=== PATIENT | female | born 1985 | race Caucasian/White ===

== ENCOUNTER 2018-07-08 09:20 | Emergency (ER) | payer SELFPAY ==
--- NOTE | 2018-07-08 10:35 | RAD REPORT ---
EXAM DESCRIPTION: RAD - Chest Pa And Lat (2 Views) - 07/08/2018 10:27 am CLINICAL HISTORY: Congestion;Cough;Chest pain Chest pain. COMPARISON: CHEST SINGLE VIEW dated 10/13/2014 FINDINGS: Mild reticular opacities are present in both lung bases likely representing mild developin g pneumonia. The heart is normal in size. No displaced fractures.
--- NOTE | 2018-07-08 10:42 | ER ---
Nurse's Notes [facility] Name: Christopher Osuna Age: 32 yrs Sex: Female : 1985 Arrival Date: 07/08/2018 Time: 09:24 Bed 5 Private MD: Unknown, Unknown Diagnosis: Bronchitis, not specified as acute or chronic;Other chest pain;Chest pain on breathing;Tobacco abuse counseling;Tobacco use;Pneumonia due to other specified bacteria Presentation: 07/08 09:36 Presenting complaint: Patient states: non productive cough, subjective fever, chest iw tightness X 3 days, also feels dizzy when she stands. Transition of care: patient was not received from another setting of care. Onset of symptoms was July 05, 2018. Risk Assessment: Do you want to hurt yourself or someone else? Patient reports no desire to harm self or others. Initial Sepsis Screen: Does the patient meet any 2 criteria? No. Patient's initial sepsis screen is negative. Does the patient have a suspected source of infection? No. Patient's initial sepsis screen is negative. Care prior to arrival: None. 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 - Social history:: Smoking status: Patient uses tobacco products, smokes one-half pack cigarettes per day. - Ebola Screening: : Patient negative for fever greater than or equal to 101.5 degrees Fahrenheit, and additional compatible Ebola Virus Disease symptoms Patient denies exposure to infectious person Patient denies travel to an Ebola-affected area in the 21 days before illness onset No symptoms or risks identified at this time. - Family history:: not pertinent. Screenin:00 Abuse screen: Denies threats or abuse. Denies injuries from another. Nutritional iw screening: No deficits noted. Tuberculosis screening: No symptoms or risk factors identified. Fall Risk None identified. Assessment: 09:56 General: Appears in no apparent distress. Behavior is calm, cooperative. Pain: iw Complains of pain in chest Pain radiates to back Pain began 2-3 days ago. Neuro: Level of Consciousness is awake, alert, obeys commands, Moves all extremities. Full function. Cardiovascular: Patient's skin is warm and dry. Respiratory: Respiratory effort is even, unlabored, Respiratory pattern is regular. Vital Signs: 09:39 BP 131 / 78; Pulse 85; Resp 16; Temp 98.3; Pulse Ox 98% on R/A; Weight 117.93 kg; iw Height 5 ft. 6 in. (167.64 cm); Pain 8/10; 09:39 Body Mass Index 41.96 (117.93 kg, 167.64 cm) iw ED Course: 09:24 Patient arrived in ED. ag5 09:26 Unknown, Unknown is Private Physician. ag5 09:34 Chele Bryant MD is Attending Physician. maria luisa 09:35 Lluvia Sandoval, MARIAM is Primary Nurse. iw 09:37 Triage completed. iw 10:09 EKG done, by equipment engineering technician. reviewed by Chele Bryant MD. at1 10:10 Patient has correct armband on for positive identification. Pulse ox on. iw 10:18 Patient moved to radiology via wheelchair. sw 10:23 X-ray completed. Patient tolerated procedure well. sw 10:24 Chest Pa And Lat (2 Views) XRAY In Process Unspecified. EDMS 10:32 Patient moved back from radiology. sw 10:43 Nish Huertas MD is Referral Physician. maria luisa 11:17 No provider procedures requiring assistance completed. Patient did not have IV access iw during this emergency room visit. Patient maintains SpO2 saturation greater than 95% on room air. 11:17 Arm band placed on. iw Administered Medications: 11:17 Drug: Zithromax 1 grams Route: PO; iw 11:20 Follow up: Response: No adverse reaction iw 11:18 Drug: Rocephin (cefTRIAXone) 1 grams Route: IM; Site: right ventrogluteal; iw 11:20 Follow up: Response: No adverse reaction iw Outcome: 10:41 Discharge ordered by . maria luisa 11:18 Discharged to home ambulatory. iw 11:18 Condition: good 11:18 Discharge instructions given to patient, family, Instructed on discharge instructions, follow up and referral plans. medication usage, Demonstrated understanding of instructions, follow-up care, medications, Prescriptions given X 2. 11:19 Patient left the ED. iw Signatures: Dispatcher [employer] Chele Fritz MD MD cha Williams, Irene, RN RN iw Cori Dacosta, metal fence erector EKG Tat1 Giovanna Hernandez RN RN Tiffany Manrique Ajare ag5 Corrections: (The following items were deleted from the chart) 10:09 10:08 General: Appears ph ph
--- NOTE | 2018-07-08 10:42 | EDPHYS ---
Physician Documentation [facility] Name: Christopher Osuna Age: 32 yrs Sex: Female : 1985 Arrival Date: 07/08/2018 Time: 09:24 Bed 5 Private MD: Unknown, Unknown ED Physician Chele Bryant HPI: 07/08 09:41 This 32 yrs old Female presents to ER via Ambulatory with complaints of Chest maria luisa Tightness, Dizziness. 09:41 The patient or guardian reports chest pain that is located primarily in the anterior maria luisa chest wall. The pain does not radiate. Associated signs and symptoms: Pertinent positives: cough. The chest pain is described as aching. Modifying factors: The symptoms are alleviated by remaining still, rest, the symptoms are aggravated by breathing, movement, palpation of area, twisting torso. Severity of pain: At its worst the pain was mild in the emergency department the pain is unchanged. The patient has not experienced similar symptoms in the past. 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 - Social history:: Smoking status: Patient uses tobacco products, smokes one-half pack cigarettes per day. - Ebola Screening: : Patient negative for fever greater than or equal to 101.5 degrees Fahrenheit, and additional compatible Ebola Virus Disease symptoms Patient denies exposure to infectious person Patient denies travel to an Ebola-affected area in the 21 days before illness onset No symptoms or risks identified at this time. - Family history:: not pertinent. ROS: 09:41 Constitutional: Negative for fever, chills, and weight loss, Eyes: Negative for injury, maria luisa pain, redness, and discharge, ENT: Negative for injury, pain, and discharge, Neck: Negative for injury, pain, and swelling, Cardiovascular: Negative for chest pain, palpitations, and edema, Abdomen/GI: Negative for abdominal pain, nausea, vomiting, diarrhea, and constipation, Back: Negative for injury and pain, : Negative for injury, bleeding, discharge, and swelling, MS/Extremity: Negative for injury and deformity, Skin: Negative for injury, rash, and discoloration, Neuro: Negative for headache, weakness, numbness, tingling, and seizure, Psych: Negative for depression, anxiety, suicide ideation, homicidal ideation, and hallucinations, Allergy/Immunology: Negative for hives, rash, and allergies, Endocrine: Negative for neck swelling, polydipsia, polyuria, polyphagia, and marked weight changes, Hematologic/Lymphatic: Negative for swollen nodes, abnormal bleeding, and unusual bruising. 09:41 Respiratory: Positive for cough, with no reported sputum. 09:46 MS/extremity: Negative for acute changes, no trauma, no stasis, no hcs, no hx dvt, pe. maria luisa Exam: 09:41 Constitutional: This is a well developed, well nourished patient who is awake, alert, maria luisa and in no acute distress. Head/Face: Normocephalic, atraumatic. Eyes: Pupils equal round and reactive to light, extra-ocular motions intact. Lids and lashes normal. Conjunctiva and sclera are non-icteric and not injected. Cornea within normal limits. Periorbital areas with no swelling, redness, or edema. ENT: Nares patent. No nasal discharge, no septal abnormalities noted. Tympanic membranes are normal and external auditory canals are clear. Oropharynx with no redness, swelling, or masses, exudates, or evidence of obstruction, uvula midline. Mucous membranes moist. Neck: Trachea midline, no thyromegaly or masses palpated, and no cervical lymphadenopathy. Supple, full range of motion without nuchal rigidity, or vertebral point tenderness. No Meningismus. Cardiovascular: Regular rate and rhythm with a normal S1 and S2. No gallops, murmurs, or rubs. Normal PMI, no JVD. No pulse deficits. Respiratory: Lungs have equal breath sounds bilaterally, clear to auscultation and percussion. No rales, rhonchi or wheezes noted. No increased work of breathing, no retractions or nasal flaring. Abdomen/GI: Soft, non-tender, with normal bowel sounds. No distension or tympany. No guarding or rebound. No evidence of tenderness throughout. Back: No spinal tenderness. No costovertebral tenderness. Full range of motion. Skin: Warm, dry with normal turgor. Normal color with no rashes, no lesions, and no evidence of cellulitis. MS/ Extremity: Pulses equal, no cyanosis. Neurovascular intact. Full, normal range of motion. Neuro: Awake and alert, GCS 15, oriented to person, place, time, and situation. Cranial nerves II-XII grossly intact. Motor strength 5/5 in all extremities. Sensory grossly intact. Cerebellar exam normal. Normal gait. Psych: Awake, alert, with orientation to person, place and time. Behavior, mood, and affect are within normal limits. 09:41 Chest/axilla: Inspection: normal, Palpation: tenderness, Axilla: are normal, no acute changes, Lymph nodes: lymphadenopathy is not appreciated. 09:43 Musculoskeletal/extremity: Extremities: all appear grossly normal, with no appreciated maria luisa pain with palpation, DVT Exam: No signs of deep vein thrombosis. no pain, no swelling, no tenderness, negative Homans' sign noted on exam, no appreciated bluish discoloration, no erythema, no increased warmth. Vital Signs: 09:39 BP 131 / 78; Pulse 85; Resp 16; Temp 98.3; Pulse Ox 98% on R/A; Weight 117.93 kg; iw Height 5 ft. 6 in. (167.64 cm); Pain 8/10; 09:39 Body Mass Index 41.96 (117.93 kg, 167.64 cm) iw MDM: 09:34 Patient medically screened. [facility] 09:43 Data reviewed: vital signs, nurses notes, EKG, radiologic studies, plain films. [facility] 07/08 09:41 Order name: Chest Pa And Lat (2 Views) XRAY [facility] 07/08 09:41 Order name: EKG; Complete Time: 09:41 [facility] 07/08 09:41 Order name: EKG - Nurse/Tech; Complete Time: 11:18 [facility] Administered Medications: 11:17 Drug: Zithromax 1 grams Route: PO; iw 11:20 Follow up: Response: No adverse reaction iw 11:18 Drug: Rocephin (cefTRIAXone) 1 grams Route: IM; Site: right ventrogluteal; iw 11:20 Follow up: Response: No adverse reaction iw Disposition: 07/08/18 10:41 Discharged to Home. Impression: Bronchitis, not specified as acute or chronic, Other chest pain, Chest pain on breathing, Tobacco abuse counseling, Tobacco use, Pneumonia due to other specified bacteria. - Condition is Stable. - Discharge Instructions: Acute Bronchitis, Adult, Nonspecific Chest Pain, Chest Wall Pain, Community-Acquired Pneumonia, Adult, Steps to Quit Smoking, Smoking Hazards, Upper Respiratory Infection, Adult, Nonspecific Chest Pain, [id number], Steps to Quit Smoking, [id number]. - Prescriptions for Cheratussin AC 10- 100 mg/5 mL Oral liquid - take 10 milliliter by ORAL route every 4 hours; 160 milliliter. Zithromax 500 mg Oral Tablet - take 1 tablet by ORAL route once daily for 4 days; 4 tablet. - Medication Reconciliation Form, Thank You Letter, Antibiotic Education, Prescription Opioid Use, Work release form form. - Follow up: Private Physician; When: 2 - 3 days; Reason: Recheck today's complaints, Continuance of care, Re-evaluation by your physician. Follow up: Nish Huertas MD; When: 2 - 3 days; Reason: Recheck today's complaints, Continuance of care, Re-evaluation by your physician. - Problem is new. - Symptoms have improved. Signatures: Dispatcher [employer] EDOR Chele Bryant MD MD cha Williams, Irene, RN RN iw Corrections: (The following items were deleted from the chart) 09:57 09:41 Urine Dipstick-Ancillary ordered. [facility] 09:57 09:41 Urine Test ordered. [facility] 10:43 10:41 07/08/2018 10:41 Discharged to Home. Impression: Bronchitis, not specified as maria luisa acute or chronic; Other chest pain; Chest pain on breathing; Tobacco abuse counseling; Tobacco use; Pneumonia due to other specified bacteria. Condition is Stable. Discharge Instructions: Acute Bronchitis, Adult, Nonspecific Chest Pain, Chest Wall Pain, Steps to Quit Smoking, Smoking Hazards, Upper Respiratory Infection, Adult, Nonspecific Chest Pain, [id number], Steps to Quit Smoking, [id number]-[id number]. Prescriptions for Cheratussin AC 10-100 mg/5 mL Oral liquid - take 10 milliliter by ORAL route every 4 hours; 160 milliliter, Zithromax Z-Atilio 250 mg Oral Tablet - take 1 tablet by ORAL route as directed for 5 days Day 1 - take two (2) tablets one time. Day 2, 3, 4 , 5 take one (1) tablet once daily.; 6 tablet. and Forms are Medication Reconciliation Form, Thank You Letter, Antibiotic Education, Prescription Opioid Use. Follow up: Private Physician; When: 2 - 3 days; Reason: Recheck today's complaints, Continuance of care, Re-evaluation by your physician. Problem is new. Symptoms have improved. [facility] 11:19 10:43 07/08/2018 10:41 Discharged to Home. Impression: Bronchitis, not specified as iw acute or chronic; Other chest pain; Chest pain on breathing; Tobacco abuse counseling; Tobacco use; Pneumonia due to other specified bacteria. Condition is Stable. Discharge Instructions: Acute Bronchitis, Adult, Nonspecific Chest Pain, Chest Wall Pain, Steps to Quit Smoking, Smoking Hazards, Upper Respiratory Infection, Adult, Nonspecific Chest Pain, [id number], Steps to Quit Smoking, [id number]. Prescriptions for Cheratussin AC 10-100 mg/5 mL Oral liquid - take 10 milliliter by ORAL route every 4 hours; 160 milliliter, Zithromax Z-Atilio 250 mg Oral Tablet - take 1 tablet by ORAL route as directed for 5 days Day 1 - take two (2) tablets one time. Day 2, 3, 4 , 5 take one (1) tablet once daily.; 6 tablet. and Forms are Medication Reconciliation Form, Thank You Letter, Antibiotic Education, Prescription Opioid Use. Follow up: Private Physician; When: 2 - 3 days; Reason: Recheck today's complaints, Continuance of care, Re-evaluation by your physician. Follow up: Nish Huertas; When: 2 - 3 days; Reason: Recheck today's complaints, Continuance of care, Re-evaluation by your physician. Problem is new. Symptoms have improved. [facility]
[2018-07-08] MEDS ORDERED: AZITHROMYCIN 250 MG TAB ONE (11:15)
[2018-07-08] MEDS ORDERED: CEFTRIAXONE 1000 MG/VIAL ONE (11:15)
[2018-07-08] MEDS ORDERED: LIDOCAINE 1% MPF 5 ML VIAL ONE (11:15)
--- NOTE | 2018-07-08 15:51 | EKG ---
Test Date: 2018-07-08 Test Time: 10:06:20 Editing Clerk: MICHELLE MEASUREMENT RESULTS: Intervals: Rate: 76 CT: 128 QRSD: 82 QT: 394 QTc: 443 [place]: P: 25 CT: 128 QRS: 44 T: 24 INTERPRETIVE STATEMENTS: Normal sinus rhythm Normal ECG No previous ECG available for comparison Electronically Signed On 07-08-18 15:50:08 CDT by Alex Alvarez
== END 2018-07-08 11:19 | disposition home or self-care (01) ==
LOC: ER 09:20
DX: J40 Bronchitis, not specified as acute or chronic (principal); R07.1 Chest pain on breathing; J15.8 Pneumonia due to other specified bacteria
CPT/HCPCS: 71046; 93005; 96372; 99284

== ENCOUNTER 2019-07-09 14:07 | Emergency (ER) | payer SELFPAY ==
--- NOTE | 2019-07-09 15:29 | ER ---
Nurse's Notes [facility] Name: Christopher Osuna Age: 33 yrs Sex: Female : 1985 Arrival Date: 07/09/2019 Time: 14:11 Bed 16 Private MD: Diagnosis: Acute streptococcal tonsillitis, unspecified Presentation: 07/08 14:14 Chief complaint: Patient states: Cough today with itchy throat. Feels hot and sweaty. ll1 No known fever. No N/V/D. 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 Coronavirus screen: The patient has NOT traveled to a country currently being monitored by the [facility] within the last 14 days. Proceed with normal triage procedures. Ebola Screen: Patient denies travel to an Ebola-affected area in the 21 days before illness onset. Initial Sepsis Screen: Does the patient meet any 2 criteria? No. Patient's initial sepsis screen is negative. Risk Assessment: Do you want to hurt yourself or someone else? Patient reports no desire to harm self or others. 14:14 Method Of Arrival: Ambulatory ll1 14:14 Acuity: VASHTI 3 ll1 Historical: - Allergies: 14:16 No Known Allergies; ll1 - PMHx: 14:16 Pancreatitis; Ulcers; ll1 - PSHx: 14:16 ; Cholecystectomy; ll1 - Immunization history:: Flu vaccine is not up to date. Screenin:45 Abuse screen: Denies threats or abuse. Nutritional screening: No deficits noted. em Tuberculosis screening: No symptoms or risk factors identified. Fall Risk None identified. Assessment: 14:45 General: Appears in no apparent distress. comfortable, well groomed, well developed, em well nourished, Behavior is calm, cooperative, appropriate for age, Reports fever for 12-24 hours. Pain: Denies pain. Neuro: Level of Consciousness is awake, alert, obeys commands, Oriented to person, place, time, situation, Appropriate for age. Cardiovascular: Capillary refill < 3 seconds Patient's skin is warm and dry. Respiratory: Reports shortness of breath on exertion cough that is non-productive, Airway is patent Respiratory effort is even, unlabored, Respiratory pattern is regular, symmetrical, Denies pain with cough. GI: Abdomen is flat, Patient currently denies nausea, vomiting. : Denies burning with urination. EENT: Nares are clear Oral mucosa is moist. Throat is reddened with gag reflex present. Derm: Skin is intact, is healthy with good turgor, Skin is pink, warm \T\ dry. Musculoskeletal: Capillary refill < 3 seconds, Range of motion: intact in all extremities. Vital Signs: 14:14 BP 117 / 67; Pulse 82; Resp 18; Temp 98.0; Pulse Ox 98% ; Weight 117.93 kg; Height 5 ll1 ft. 6 in. (167.64 cm); Pain 0/10; 14:14 Body Mass Index 41.96 (117.93 kg, 167.64 cm) ll1 ED Course: 14:11 Patient arrived in ED. mr 14:16 Triage completed. ll1 14:16 Arm band placed on. ll1 14:19 Carlos Nguyen PA is PHCP. jr8 14:19 Shawn Pavon MD is Attending Physician. jr8 14:27 Carlos Sierra, RN is Primary Nurse. em 14:28 Patient has correct armband on for positive identification. Call light in reach. em 14:50 Flu and/or RSV swab sent to lab. Strep swab sent to lab. em 15:43 No provider procedures requiring assistance completed. Patient did not have IV access em during this emergency room visit. Administered Medications: No medications were administered Outcome: 15:28 Discharge ordered by . jr8 15:43 Discharged to home ambulatory. em 15:43 Condition: good 15:43 Discharge instructions given to patient, Instructed on discharge instructions, follow up and referral plans. medication usage, Demonstrated understanding of instructions, follow-up care, medications, Prescriptions given X 1. 15:44 Patient left the ED. em Signatures: Dimple Bill mr Carlos Sierra, RN RN em Carlos Nguyen PA PA jr8 Sera Elizabeth RN RN 1
--- NOTE | 2019-07-09 15:29 | EDPHYS ---
Physician Documentation [facility] Name: Christopher Osuna Age: 33 yrs Sex: Female : 1985 Arrival Date: 07/09/2019 Time: 14:11 Bed 16 Private MD: ED Physician Shawn Pavon HPI: 07/08 15:27 This 33 yrs old Female presents to ER via Ambulatory with complaints of jr8 Fever, Cough. 15:27 The patient reports fever, not measured (subjective). Onset: The symptoms/episode jr8 began/occurred gradually, 2 day(s) ago. Modifying factors: there are no obvious modifying factors. Associated signs and symptoms: Pertinent positives: cough, sore throat. Severity of symptoms: At their worst the symptoms were mild in the emergency department the symptoms are unchanged. The patient has not experienced similar symptoms in the past. The patient has not recently seen a physician. Historical: - Allergies: 14:16 No Known Allergies; ll1 - PMHx: 14:16 Pancreatitis; Ulcers; ll1 - PSHx: 14:16 ; Cholecystectomy; ll1 - Immunization history:: Flu vaccine is not up to date. ROS: 15:27 Eyes: Negative for injury, pain, redness, and discharge, Neck: Negative for injury, jr8 pain, and swelling, Cardiovascular: Negative for chest pain, palpitations, and edema, Abdomen/GI: Negative for abdominal pain, nausea, vomiting, diarrhea, and constipation, Back: Negative for injury and pain, MS/Extremity: Negative for injury and deformity, Skin: Negative for injury, rash, and discoloration, Neuro: Negative for headache, weakness, numbness, tingling, and seizure. 15:27 Constitutional: Positive for body aches, fever. 15:27 ENT: Positive for sore throat. 15:27 Respiratory: Positive for cough, Negative for dyspnea on exertion, shortness of breath, sputum production, wheezing. Exam: 15:27 Eyes: Pupils equal round and reactive to light, extra-ocular motions intact. Lids and jr8 lashes normal. Conjunctiva and sclera are non-icteric and not injected. Cornea within normal limits. Periorbital areas with no swelling, redness, or edema. ENT: Nares patent. No nasal discharge, no septal abnormalities noted. Tympanic membranes are normal and external auditory canals are clear. Oropharynx with no redness, swelling, or masses, exudates, or evidence of obstruction, uvula midline. Mucous membranes moist. Neck: Trachea midline, no thyromegaly or masses palpated, and no cervical lymphadenopathy. Supple, full range of motion without nuchal rigidity, or vertebral point tenderness. No Meningismus. Cardiovascular: Regular rate and rhythm with a normal S1 and S2. No gallops, murmurs, or rubs. Normal PMI, no JVD. No pulse deficits. Respiratory: Lungs have equal breath sounds bilaterally, clear to auscultation and percussion. No rales, rhonchi or wheezes noted. No increased work of breathing, no retractions or nasal flaring. Abdomen/GI: Soft, non-tender, with normal bowel sounds. No distension or tympany. No guarding or rebound. No evidence of tenderness throughout. Back: No spinal tenderness. No costovertebral tenderness. Full range of motion. Skin: Warm, dry with normal turgor. Normal color with no rashes, no lesions, and no evidence of cellulitis. MS/ Extremity: Pulses equal, no cyanosis. Neurovascular intact. Full, normal range of motion. Neuro: Awake and alert, GCS 15, oriented to person, place, time, and situation. Cranial nerves II-XII grossly intact. Motor strength 5/5 in all extremities. Sensory grossly intact. Cerebellar exam normal. Normal gait. Vital Signs: 14:14 BP 117 / 67; Pulse 82; Resp 18; Temp 98.0; Pulse Ox 98% ; Weight 117.93 kg; Height 5 ll1 ft. 6 in. (167.64 cm); Pain 0/10; 14:14 Body Mass Index 41.96 (117.93 kg, 167.64 cm) ll1 MDM: 14:24 Patient medically screened. 8 15:27 Data reviewed: vital signs, nurses notes, lab test result(s), and as a result, I will jr8 discharge patient. Data interpreted: Pulse oximetry: on room air is 98 %. Interpretation: normal. Counseling: I had a detailed discussion with the patient and/or guardian regarding: the historical points, exam findings, and any diagnostic results supporting the discharge/admit diagnosis, lab results, the need for outpatient follow up, a family practitioner, to return to the emergency department if symptoms worsen or persist or if there are any questions or concerns that arise at home. 07/08 14:51 Order name: Influenza Screen (a \T\ B); Complete Time: 15:8 07/08 14:51 Order name: Strep; Complete Time: 15: Administered Medications: No medications were administered Disposition: 18:32 Co-signature as Attending Physician, Shawn Pavon MD Signature for administrative ps1 purposes. Did not see or evaluate patient. . Disposition: 07/09/19 15:28 Discharged to Home. Impression: Acute streptococcal tonsillitis, unspecified. - Condition is Stable. - Discharge Instructions: Strep Throat. - Prescriptions for Augmentin 875- 125 mg Oral Tablet - take 1 tablet by ORAL route every 12 hours for 10 days; 20 tablet. - Medication Reconciliation Form, Thank You Letter, Antibiotic Education, Prescription Opioid Use form. - Follow up: Private Physician; When: 5 - 6 days; Reason: Recheck today's complaints, Continuance of care, Re-evaluation by your physician. - Problem is new. - Symptoms have improved. Signatures: Dispatcher [employer] EDCarlos Burnham, RN RN em Carlos Nguyen PA PA jr8 Shawn Pavon MD MD ps1 Sera Elizabeth RN RN ll1 Corrections: (The following items were deleted from the chart) 15:44 15:28 07/09/2019 15:28 Discharged to Home. Impression: Acute streptococcal tonsillitis, em unspecified. Condition is Stable. Forms are Medication Reconciliation Form, Thank You Letter, Antibiotic Education, Prescription Opioid Use. Follow up: Private Physician; When: 5 - 6 days; Reason: Recheck today's complaints, Continuance of care, Re-evaluation by your physician. Problem is new. Symptoms have improved. jr8
[2019-07-09 15:49] VITALS: BP 117/67; TEMP 98; O2SAT 98
== END 2019-07-09 15:44 | disposition home or self-care (01) ==
LOC: ER 14:07
DX: J03.00 Acute streptococcal tonsillitis, unspecified (principal)
CPT/HCPCS: 87081; 87804; 99283

== ENCOUNTER 2020-04-08 12:09 | Emergency (ER) | payer SELFPAY ==
--- NOTE | 2020-04-08 13:52 | RAD REPORT ---
EXAM DESCRIPTION: Jean Single View04/08/2020 1:47 pm CLINICAL HISTORY: Congestion COMPARISON: 2019 FINDINGS: The lungs appear clear of acute infiltrate. The heart is normal size IMPRESSION: No acute abnormalities displayed
--- NOTE | 2020-04-08 14:50 | EDPHYS ---
Physician Documentation [facility] Name: Christopher Osuna Age: 34 yrs Sex: Female : 1985 Arrival Date: 04/08/2020 Time: 12:11 Bed 7 Private MD: ED Physician Antoine Hughes HPI: 04/08 15:07 This 34 yrs old Female presents to ER via Ambulatory with complaints of Sore kb Throat, Breathing Difficulty, Difficulty Swallowing. 15:07 The patient presents with sore throat. The patient describes throat pain as constant. kb Onset: The symptoms/episode began/occurred 1 week(s) ago. Severity of symptoms: At their worst the symptoms were moderate, in the emergency department the symptoms are unchanged. Modifying factors: The symptoms are alleviated by nothing, the symptoms are aggravated by swallowing, Patient's oral intake status: good Denies contact with similarly ill indivduals. Associated signs and symptoms: Pertinent positives: cough, fever, Sore throat. The patient has not experienced similar symptoms in the past. The patient has not recently seen a physician. Pt reports cough, congestion, fever and sore throat for 1 week. . Historical: - Allergies: 13:16 No Known Allergies; aa5 - PMHx: 13:16 Pancreatitis; Ulcers; aa5 - PSHx: 13:16 ; Cholecystectomy; aa5 - Immunization history:: Flu vaccine is not up to date. - Social history:: Smoking status: Patient reports the use of cigarette tobacco products, smokes one-half pack cigarettes per day. ROS: 15:06 Cardiovascular: Negative for chest pain, palpitations, and edema, Abdomen/GI: Negative kb for abdominal pain, nausea, vomiting, diarrhea, and constipation, Back: Negative for injury and pain, MS/Extremity: Negative for injury and deformity, Skin: Negative for injury, rash, and discoloration, Neuro: Negative for headache, weakness, numbness, tingling, and seizure. 15:06 Constitutional: Positive for fever. 15:06 ENT: Positive for sore throat. 15:06 Respiratory: Positive for cough. Exam: 15:06 Constitutional: This is a well developed, well nourished patient who is awake, alert, kb and in no acute distress. Head/Face: Normocephalic, atraumatic. Neck: Trachea midline, no thyromegaly or masses palpated, and no cervical lymphadenopathy. Supple, full range of motion without nuchal rigidity, or vertebral point tenderness. No Meningismus. Chest/axilla: Normal chest wall appearance and motion. Nontender with no deformity. No lesions are appreciated. Cardiovascular: Regular rate and rhythm with a normal S1 and S2. No gallops, murmurs, or rubs. Normal PMI, no JVD. No pulse deficits. Respiratory: Lungs have equal breath sounds bilaterally, clear to auscultation and percussion. No rales, rhonchi or wheezes noted. No increased work of breathing, no retractions or nasal flaring. Abdomen/GI: Soft, non-tender, with normal bowel sounds. No distension or tympany. No guarding or rebound. No evidence of tenderness throughout. Skin: Warm, dry with normal turgor. Normal color with no rashes, no lesions, and no evidence of cellulitis. MS/ Extremity: Pulses equal, no cyanosis. Neurovascular intact. Full, normal range of motion. Neuro: Awake and alert, GCS 15, oriented to person, place, time, and situation. Cranial nerves II-XII grossly intact. Motor strength 5/5 in all extremities. Sensory grossly intact. Cerebellar exam normal. Normal gait. 15:06 ENT: Posterior pharynx: Airway: normal, no evidence of obstruction, Tonsils: are normal kb in appearance, Uvula: normal, midline, swelling, is not appreciated, erythema, that is mild, exudate, is not appreciated. Vital Signs: 13:15 BP 101 / 74; Pulse 94; Resp 20 S; Temp 98.3(O); Pulse Ox 99% on R/A; Weight 113.4 kg aa5 (R); Height 5 ft. 6 in. (167.64 cm) (R); Pain 4/10; 13:15 Body Mass Index 40.35 (113.40 kg, 167.64 cm) aa5 MDM: 13:14 Patient medically screened. kb 15:05 Data reviewed: vital signs, nurses notes. Data interpreted: Pulse oximetry: on room air kb is 99 %. Interpretation: normal. Counseling: I had a detailed discussion with the patient and/or guardian regarding: the historical points, exam findings, and any diagnostic results supporting the discharge/admit diagnosis, lab results, radiology results, the need for outpatient follow up, a family practitioner, to return to the emergency department if symptoms worsen or persist or if there are any questions or concerns that arise at home. 15:08 ED course: Pt refuses COVID test. kb 04/08 13:16 Order name: Flu; Complete Time: 14:14 kb 04/08 13:16 Order name: Strep; Complete Time: 14:14 kb 04/08 13:16 Order name: Chest Single View XRAY; Complete Time: 13:54 kb 04/08 14:22 Order name: Throat Culture EDMS Administered Medications: No medications were administered Disposition: 15:07 Co-signature as Attending Physician, Antoine Hughes MD I agree with the assessment and kdr plan of care. Disposition: 04/08/20 14:50 Discharged to Home. Impression: Acute pharyngitis. - Condition is Stable. - Discharge Instructions: Pharyngitis, [id number], Sore Throat, [id number]. - Work release form, Medication Reconciliation Form, Thank You Letter, Antibiotic Education, Prescription Opioid Use form. - Follow up: Emergency Department; When: As needed; Reason: Worsening of condition. Follow up: Private Physician; When: 2 - 3 days; Reason: Recheck today's complaints, Continuance of care, Re-evaluation by your physician. Signatures: Dispatcher [employer] EDCO Hyacinth Mccullough, HALLIEC Marlyn Vang, RN RN dm5 Antoine Hughes MD MD [facility] Amanda Reyes, RN RN aa5 Corrections: (The following items were deleted from the chart) 15:06 14:50 04/08/2020 14:50 Discharged to Home. Impression: Acute pharyngitis. Condition is dm5 Stable. Forms are Medication Reconciliation Form, Thank You Letter, Antibiotic Education, Prescription Opioid Use. Follow up: Emergency Department; When: As needed; Reason: Worsening of condition. Follow up: Private Physician; When: 2 - 3 days; Reason: Recheck today's complaints, Continuance of care, Re-evaluation by your physician. kb 15:07 15:06 Constitutional: This is a well developed, well nourished patient who is awake, kb alert, and in no acute distress. Head/Face: Normocephalic, atraumatic. ENT: Nares patent. No nasal discharge, no septal abnormalities noted. Tympanic membranes are normal and external auditory canals are clear. Oropharynx with no redness, swelling, or masses, exudates, or evidence of obstruction, uvula midline. Mucous membranes moist. Neck: Trachea midline, no thyromegaly or masses palpated, and no cervical lymphadenopathy. Supple, full range of motion without nuchal rigidity, or vertebral point tenderness. No Meningismus. Chest/axilla: Normal chest wall appearance and motion. Nontender with no deformity. No lesions are appreciated. Cardiovascular: Regular rate and rhythm with a normal S1 and S2. No gallops, murmurs, or rubs. Normal PMI, no JVD. No pulse deficits. Respiratory: Lungs have equal breath sounds bilaterally, clear to auscultation and percussion. No rales, rhonchi or wheezes noted. No increased work of breathing, no retractions or nasal flaring. Abdomen/GI: Soft, non-tender, with normal bowel sounds. No distension or tympany. No guarding or rebound. No evidence of tenderness throughout. Skin: Warm, dry with normal turgor. Normal color with no rashes, no lesions, and no evidence of cellulitis. MS/ Extremity: Pulses equal, no cyanosis. Neurovascular intact. Full, normal range of motion. Neuro: Awake and alert, GCS 15, oriented to person, place, time, and situation. Cranial nerves II-XII grossly intact. Motor strength 5/5 in all extremities. Sensory grossly intact. Cerebellar exam normal. Normal gait. kb
--- NOTE | 2020-04-08 14:50 | ER ---
Nurse's Notes [facility] Name: Christopher Osuna Age: 34 yrs Sex: Female : 1985 Arrival Date: 04/08/2020 Time: 12:11 Bed 7 Private MD: Diagnosis: Acute pharyngitis Presentation: 04/08 13:11 Chief complaint: Patient states: mild shortness of breath, cough in the morning, sore aa5 throat that began approximately 1 week ago. 13:11 Coronavirus screen: Client presents with at least one sign or symptom that may indicate aa5 coronavirus-19. Standard/surgical mask placed on the client. Provider contacted for isolation considerations. Ebola Screen: Patient negative for fever greater than or equal to 101.5 degrees Fahrenheit, and additional compatible Ebola Virus Disease symptoms. Initial Sepsis Screen: Does the patient meet any 2 criteria? HR > 90 bpm. Does the patient have a suspected source of infection? No. Patient's initial sepsis screen is negative. Risk Assessment: Do you want to hurt yourself or someone else? Patient reports no desire to harm self or others. Onset of symptoms was March 2020. 13:11 Acuity: VASHTI 3 aa5 13:11 Method Of Arrival: Ambulatory aa5 Historical: - Allergies: 13:16 No Known Allergies; aa5 - PMHx: 13:16 Pancreatitis; Ulcers; aa5 - PSHx: 13:16 ; Cholecystectomy; aa5 - Immunization history:: Flu vaccine is not up to date. - Social history:: Smoking status: Patient reports the use of cigarette tobacco products, smokes one-half pack cigarettes per day. Vital Signs: 13:15 BP 101 / 74; Pulse 94; Resp 20 S; Temp 98.3(O); Pulse Ox 99% on R/A; Weight 113.4 kg aa5 (R); Height 5 ft. 6 in. (167.64 cm) (R); Pain 4/10; 13:15 Body Mass Index 40.35 (113.40 kg, 167.64 cm) aa5 ED Course: 12:11 Patient arrived in ED. rg4 13:10 Arm band placed on. aa5 13:14 Hyacinth Mccullough FNP-C is [facility]. kb 13:14 Antoine Hughes MD is Attending Physician. kb 13:15 Triage completed. aa5 13:47 Chest Single View XRAY In Process Unspecified. EDMS 14:50 Nadine Zuniga, RN is Primary Nurse. [email or web address] Administered Medications: No medications were administered Outcome: 14:50 Discharge ordered by . kb 15:06 Patient left the ED. dm5 Signatures: Dispatcher [employer] EDMS Hyacinth Mccullough, REPAIRER VENEER SHEET-C REPAIRER VENEER SHEET-Marlyn Tripathi, RN RN dm5 Amanda Reyes, RN RN [email or web address] Marcia Tao rg4 Nadine Zuniga, RN RN jl7
[2020-04-11 14:34] VITALS: BP 101/74; TEMP 98.3; O2SAT 99
== END 2020-04-08 15:06 | disposition home or self-care (01) ==
LOC: ER 12:09
DX: J02.9 Acute pharyngitis, unspecified (principal); Z53.29 Procedure and treatment not carried out because of patient's decision for other reasons; F17.210 Nicotine dependence, cigarettes, uncomplicated
CPT/HCPCS: 71045; 87070; 87081; 87804; 99282

== ENCOUNTER 2020-05-01 18:46 | Emergency (ER) | payer SELFPAY ==
--- NOTE | 2020-05-01 20:15 | EDPHYS ---
Physician Documentation [facility] Name: Christopher Osuna Age: 34 yrs Sex: Female : 1985 Arrival Date: 05/01/2020 Time: 18:49 Bed 18 Private MD: ED Physician Milan Hayden HPI: 05/01 20:11 This 34 yrs old Female presents to ER via Ambulatory with complaints of jmm Difficulty Swallowing. 20:11 The patient presents with sore throat. Onset: The symptoms/episode began/occurred jmm gradually, 3 day(s) ago. Modifying factors: The symptoms are alleviated by nothing, the symptoms are aggravated by swallowing. Associated signs and symptoms: Pertinent negatives fever. This is a 34 year old female with a history of pancreatitis, that presents to the ED with complaints of sore throat, congestion, ear ache beginning approx 2 to 3 days ago. Patient had similar episodes 2 week prior when diagnosed with pharyngitis. . 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 - Social history:: Smoking status: Patient reports the use of cigarette tobacco products, smokes one pack cigarettes per day. ROS: 20:11 Constitutional: Negative for fever, chills, and weight loss. jmm 20:11 ENT: Positive for ear pain, sinus congestion, sore throat. 20:11 All other systems are negative. Exam: 20:11 Constitutional: This is a well developed, well nourished patient who is awake, alert, jmm and in no acute distress. Head/Face: atraumatic. Eyes: EOMI, no conjunctival erythema appreciated 20:11 Chest/axilla: Normal chest wall appearance and motion. Cardiovascular: Regular rate and rhythm. No edema appreciated Respiratory: Normal respirations, no respiratory distress appreciated Abdomen/GI: Non distended, soft Back: Normal ROM Skin: General appearance color normal MS/ Extremity: Moves all extremities, no obvious deformities appreciated, no edema noted to the lower extremities Neuro: Awake and alert, normal gait Psych: Behavior is normal, Mood is normal, Patient is cooperative and pleasant 20:11 ENT: Posterior pharynx: erythema, that is mild. Vital Signs: 18:52 BP 126 / 84; Pulse 105; Resp 18 S; Temp 98.3(TE); Pulse Ox 98% on R/A; Weight 113.4 kg ca1 (R); Height 5 ft. 6 in. (167.64 cm) (R); Pain 7/10; 20:40 BP 118 / 75; Pulse 85; Resp 19; Pulse Ox 99% ; rr5 18:52 Body Mass Index 40.35 (113.40 kg, 167.64 cm) ca1 MDM: 19:50 Patient medically screened. [facility] 20:13 Data reviewed: vital signs, nurses notes. Counseling: I had a detailed discussion with [facility] the patient and/or guardian regarding: the historical points, exam findings, and any diagnostic results supporting the discharge/admit diagnosis, the need for outpatient follow up, to return to the emergency department if symptoms worsen or persist or if there are any questions or concerns that arise at home. ED course: Patient is alert and non toxic in appearance in the ED. No signs of resp distress. PE not consistent with MAGISTRATE JUDGE or ludwigs. Advised to follow up with pcp and otherwise given strict return precautions. Patient understood and agrees with the plan of care. . 05/01 20:01 Order name: Strep; Complete Time: 20:23 [facility] 05/01 20:24 Order name: Throat Culture EDMS Administered Medications: 20:19 Drug: Decadron 10 mg Route: IM; Site: left deltoid; rr5 20:41 Follow up: Response: No adverse reaction rr5 Disposition: 05/02 04:51 Co-signature as Attending Physician, Milan Hayden MD. [email or web address] Disposition: 05/01/20 20:15 Discharged to Home. Impression: Acute pharyngitis. - Condition is Stable. - Discharge Instructions: Pharyngitis. - Prescriptions for Amoxicillin 875 mg Oral Tablet - take 1 tablet by ORAL route every 12 hours for 10 days; 20 tablet. - Work release form, Medication Reconciliation Form, Thank You Letter, Antibiotic Education, Prescription Opioid Use form. - Follow up: Private Physician; When: 2 - 3 days; Reason: Recheck today's complaints, Continuance of care, Re-evaluation by your physician. Signatures: Dispatcher [employer] EDJames Mckeon PA PA jmm Roque, Raymond, RN RN rr5 Tess Murray RN RN ca1 Milan Hayden MD MD [email or web address] Corrections: (The following items were deleted from the chart) 05/01 20:41 20:15 05/01/2020 20:15 Discharged to Home. Impression: Acute pharyngitis. Condition is rr5 Stable. Forms are Medication Reconciliation Form, Thank You Letter, Antibiotic Education, Prescription Opioid Use. Follow up: Private Physician; When: 2 - 3 days; Reason: Recheck today's complaints, Continuance of care, Re-evaluation by your physician. jhonny
--- NOTE | 2020-05-01 20:15 | ER ---
Nurse's Notes [facility] Name: Christopher Osuna Age: 34 yrs Sex: Female : 1985 Arrival Date: 05/01/2020 Time: 18:49 Bed 18 Private MD: Diagnosis: Acute pharyngitis Presentation: 05/01 18:52 Chief complaint: Patient states: Here couple weeks ago for the same thing. They said it ca1 was pharyngitis and it went away. About 2 days ago, came back and got worse, feels like I am swallowing glass, my ears hurt when I talk. Feverish in the morning. Coronavirus screen: Client denies travel out of the [place] in the last 14 days. fever, sore throat, Client presents with at least one sign or symptom that may indicate coronavirus-19. Standard/surgical mask placed on the client. Provider contacted for isolation considerations. Ebola Screen: Patient negative for fever greater than or equal to 101.5 degrees Fahrenheit, and additional compatible Ebola Virus Disease symptoms Patient denies exposure to infectious person. Patient denies travel to an Ebola-affected area in the 21 days before illness onset. No symptoms or risks identified at this time. Initial Sepsis Screen: Does the patient meet any 2 criteria? No. Patient's initial sepsis screen is negative. Does the patient have a suspected source of infection? No. Patient's initial sepsis screen is negative. Risk Assessment: Do you want to hurt yourself or someone else? Patient reports no desire to harm self or others. Onset of symptoms was May 01, 2020. 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 - Social history:: Smoking status: Patient reports the use of cigarette tobacco products, smokes one pack cigarettes per day. Screenin:10 Abuse screen: Denies threats or abuse. Denies injuries from another. Nutritional rr5 screening: No deficits noted. Tuberculosis screening: No symptoms or risk factors identified. Fall Risk None identified. Total Estevez Fall Scale indicates No Risk (0-24 pts). Assessment: 20:10 General: Appears in no apparent distress. uncomfortable, Behavior is calm, cooperative, rr5 appropriate for age. 20:10 Pain: Complains of pain in throat Pain currently is 7 out of 10 on a pain scale. rr5 Quality of pain is described as aching, Pain began gradually, Is intermittent. Neuro: Level of Consciousness is awake, alert, obeys commands, Oriented to person, place, time, situation. Cardiovascular: Capillary refill < 3 seconds Patient's skin is warm and dry. Respiratory: Airway is patent Respiratory effort is even, unlabored, Respiratory pattern is regular, symmetrical. GI: No signs and/or symptoms were reported involving the gastrointestinal system. : No signs and/or symptoms were reported regarding the genitourinary system. EENT: Throat is clear with gag reflex present, Reports difficulty swallowing. Derm: Skin is intact, is healthy with good turgor, Skin temperature is warm. Musculoskeletal: Capillary refill < 3 seconds. 20:40 Reassessment: Patient appears in no apparent distress at this time. Patient is alert, rr5 oriented x 3, equal unlabored respirations, skin warm/dry/pink. discharge instruction given and explained without complaints made. Vital Signs: 18:52 BP 126 / 84; Pulse 105; Resp 18 S; Temp 98.3(TE); Pulse Ox 98% on R/A; Weight 113.4 kg ca1 (R); Height 5 ft. 6 in. (167.64 cm) (R); Pain 7/10; 20:40 BP 118 / 75; Pulse 85; Resp 19; Pulse Ox 99% ; rr5 18:52 Body Mass Index 40.35 (113.40 kg, 167.64 cm) ca1 ED Course: 18:49 Patient arrived in ED. ag5 18:55 Triage completed. ca1 18:56 Arm band placed on right wrist. ca1 19:42 Will Damian RN is Primary Nurse. rr5 19:45 James Billy PA is PHCP. jmm 19:45 Milan Hayden MD is Attending Physician. jmm 20:10 Patient has correct armband on for positive identification. Bed in low position. Call rr5 light in reach. Side rails up X2. Pulse ox on. NIBP on. 20:10 Strep Sent. dh4 20:41 No provider procedures requiring assistance completed. Patient did not have IV access rr5 during this emergency room visit. Administered Medications: 20:19 Drug: Decadron 10 mg Route: IM; Site: left deltoid; rr5 20:41 Follow up: Response: No adverse reaction rr5 Outcome: 20:15 Discharge ordered by MD. barry 20:41 Discharged to home ambulatory. rr5 20:41 Condition: stable 20:41 Discharge instructions given to patient, Instructed on discharge instructions, follow up and referral plans. medication usage, Demonstrated understanding of instructions, follow-up care, medications, Prescriptions given X 1. 20:41 Patient left the ED. rr5 Signatures: James Billy PA PA jmm Roque, Raymond, RN RN rr5 Tess Murray RN RN ca1 Branden, Elvis 5 Amish Harris 4 Corrections: (The following items were deleted from the chart) 18:55 18:52 BP 126 / 84; Pulse 113bpm; Resp 18bpm; Spontaneous; Pulse Ox 98% RA; Temp 98.3F ca1 Temporal; 113.4 kg Reported; Height 5 ft. 6 in. Reported; BMI: 40.3; Pain 7/10; ca1
[2020-05-01] MEDS ORDERED: dexAMETHasone 10 MG/ML VIAL ONE (20:31)
[2020-05-01 20:46] VITALS: TEMP 98.3
[2020-05-01 20:47] VITALS: BP 118/75; O2SAT 99
== END 2020-05-01 20:41 | disposition home or self-care (01) ==
LOC: ER 18:46
DX: J02.9 Acute pharyngitis, unspecified (principal); F17.210 Nicotine dependence, cigarettes, uncomplicated
CPT/HCPCS: 87070; 87081; 96372; 99284; J1100

== ENCOUNTER 2020-05-26 19:58 | Emergency (ER) | payer SELFPAY ==
[2020-05-26 23:46] LABS: SARS-COV-2 RT PCR NEGATIVE (NEGATIVE)
[2020-05-26] MEDS ORDERED: CEFTRIAXONE 1000 MG/VIAL ONE (23:53)
[2020-05-26] MEDS ORDERED: AZITHROMYCIN 250 MG TAB ONE (23:54)
[2020-05-26] MEDS ORDERED: predniSONE 20 MG TAB ONE (23:54)
[2020-05-26] MEDS ORDERED: LIDOCAINE 1% MPF 2 ML AMPULE ONE (23:58)
--- NOTE | 2020-05-27 00:12 | ER ---
Nurse's Notes [facility] Name: Christopher Osuna Age: 34 yrs Sex: Female : 1985 Arrival Date: 05/26/2020 Time: 19:58 Bed X-Ray Private MD: Diagnosis: Streptococcal pharyngitis;Tobacco abuse counseling;Tobacco use;Cough Presentation: 05/26 20:12 Chief complaint: Patient states: Sore throat for over 1 month since her last visit. ll1 Using a throat lozenge, and suddenly felt like her throat closed and felt SOB. Happened twice today. Sweats a lot during the night, but takes aleve every morning. Pain radiates down through chest. Coronavirus screen: Client denies travel out of the [place] in the last 14 days. cough unrelated to allergies, difficulty breathing, headache, muscle pain, nausea, shortness of breath, sore throat, Client presents with at least one sign or symptom that may indicate coronavirus-19. Standard/surgical mask placed on the client. Ebola Screen: Patient denies travel to an Ebola-affected area in the 21 days before illness onset. Initial Sepsis Screen: Does the patient meet any 2 criteria? HR > 90 bpm. No. Patient's initial sepsis screen is negative. Does the patient have a suspected source of infection? Yes: Other: throat. Risk Assessment: Do you want to hurt yourself or someone else? Patient reports no desire to harm self or others. Onset of symptoms was April 25, 2020. 20:12 Method Of Arrival: Ambulatory ll1 20:12 Acuity: VASHTI 3 ll1 Historical: - Allergies: 20:16 No Known Drug Allergies; ll1 - PMHx: 20:16 Pancreatitis; Ulcers; ll1 - PSHx: 20:16 ; Cholecystectomy; ll1 - Immunization history:: Flu vaccine is not up to date. - Social history:: Smoking status: Patient reports the use of cigarette tobacco products, smokes one pack cigarettes per day. - Family history:: not pertinent. Screenin:03 Abuse screen: Denies threats or abuse. Nutritional screening: No deficits noted. vg1 Tuberculosis screening: No symptoms or risk factors identified. Fall Risk No fall in past 12 months (0 pts). No secondary diagnosis (0 pts). No IV (0 pts). Ambulatory Aid- None/Bed Rest/Nurse Assist (0 pts). Gait- Normal/Bed Rest/Wheelchair (0 pts) Mental Status- Oriented to own ability (0 pts). Total Estevez Fall Scale indicates No Risk (0-24 pts). Assessment: 22:01 General: Appears in no apparent distress. comfortable, Behavior is calm, cooperative. vg1 Pain: Complains of pain in throat Pain currently is 8 out of 10 on a pain scale. Pain began for about a month. Neuro: Level of Consciousness is awake, alert, obeys commands, Oriented to person, place, time, situation. Cardiovascular: Patient's skin is warm and dry. Respiratory: Airway is patent Respiratory effort is even, unlabored, Respiratory pattern is regular, symmetrical, Breath sounds are clear bilaterally. GI: Reports nausea. : No signs and/or symptoms were reported regarding the genitourinary system. EENT: Throat is reddened. Derm: Skin is intact, is healthy with good turgor. Musculoskeletal: Circulation, motion, and sensation intact. 23:03 Reassessment: Patient appears in no apparent distress at this time. No changes from vg1 previously documented assessment. Patient and/or family updated on plan of care and expected duration. Pain level reassessed. Patient is alert, oriented x 3, equal unlabored respirations, skin warm/dry/pink. Vital Signs: 20:12 BP 122 / 78; Pulse 98; Resp 17; Temp 98.3; Pulse Ox 100% ; Weight 122.47 kg; Height 5 ll1 ft. 6 in. (167.64 cm); Pain 8/10; 22:02 BP 116 / 49; Pulse 90; Resp 18; Pulse Ox 100% ; vg1 22:58 BP 105 / 67; Pulse 90; Resp 20; Pulse Ox 100% on R/A; vg1 23:30 BP 111 / 66; Pulse 85; Resp 18; Pulse Ox 100% on R/A; vg1 20:12 Body Mass Index 43.58 (122.47 kg, 167.64 cm) ll1 ED Course: 19:58 Patient arrived in ED. cl3 20:16 Triage completed. ll1 20:18 Arm band placed on. ll1 21:27 Chele Bryant MD is Attending Physician. maria luisa 21:29 Kim Tao, RN is Primary Nurse. vg1 21:44 Chest Pa And Lat (2 Views) XRAY In Process Unspecified. EDMS 22:03 Patient has correct armband on for positive identification. Bed in low position. Call [facility] light in reach. Side rails up X 1. 22:04 COVID swab sent to lab. Flu and/or RSV swab sent to lab. Strep swab sent to lab. vg1 23:52 Patient moved to radiology via wheelchair. vg1 23:56 Primary Nurse role handed off by Kim Tao RN 23:56 Avel Santoyo, RN is Primary Nurse. sg 23:57 Neck Soft Tissue XRAY In Process Unspecified. EDMS 23:58 Report given to MARIAM Fitzpatrick. [facility] 05/27 00:11 Lynn Flanagan MD is Referral Physician. [facility] 00:15 No provider procedures requiring assistance completed. Patient did not have IV access sg during this emergency room visit. Administered Medications: 05/26 23:51 Drug: predniSONE 60 mg Route: PO; 1 05/27 00:10 Follow up: Response: No adverse reaction 05/26 23:52 Drug: Rocephin (cefTRIAXone) 1 grams Route: IM; Site: right gluteus; 1 05/27 00:15 Follow up: Response: No adverse reaction 05/26 23:52 Drug: Zithromax 500 mg Route: PO; 1 05/27 00:10 Follow up: Response: No adverse reaction Outcome: 00:11 Discharge ordered by . [facility] 00:15 Discharged to home ambulatory. sg 00:15 Condition: good 00:15 Discharge instructions given to patient, Instructed on discharge instructions, follow up and referral plans. safety practices, Demonstrated understanding of instructions, follow-up care, medications, Prescriptions given X 2. 00:20 Patient left the ED. sg Signatures: Dispatcher [employer] EDMS Avel Santoyo, RN RN sg Chele Bryant MD MD cha Lewis, Charde cl3 Kim Tao RN RN 1 Sera Elizabeth RN RN ll1 Corrections: (The following items were deleted from the chart) 05/26 20:18 20:12 BP 98 / 84; Pulse 98bpm; Resp 17bpm; Pulse Ox 100%; Temp 98.3F; 122.47 kg; Height ll1 5 ft. 6 in.; BMI: 43.5; Pain 8/10; ll1
--- NOTE | 2020-05-27 00:12 | EDPHYS ---
Physician Documentation [facility] Name: Christopher Osuna Age: 34 yrs Sex: Female : 1985 Arrival Date: 05/26/2020 Time: 19:58 Bed X-Ray Private MD: ED Physician Chele Bryant HPI: 05/26 23:33 This 34 yrs old Female presents to ER via Ambulatory with complaints of maria luisa Breathing Difficulty, Sore Throat. 23:33 The patient has shortness of breath at rest, with light activity. Onset: The maria luisa symptoms/episode began/occurred 2 week(s) ago. Duration: The symptoms are continuous, and are steadily getting worse. The patient's shortness of breath is aggravated by coughing, talking, is alleviated by nothing. Associated signs and symptoms: The patient has no apparent associated signs or symptoms. Severity of symptoms: At their worst the symptoms were mild moderate in the emergency department the symptoms are unchanged. The patient has experienced similar episodes in the past, a few times. Historical: - Allergies: 20:16 No Known Drug Allergies; ll1 - PMHx: 20:16 Pancreatitis; Ulcers; ll1 - PSHx: 20:16 ; Cholecystectomy; ll1 - Immunization history:: Flu vaccine is not up to date. - Social history:: Smoking status: Patient reports the use of cigarette tobacco products, smokes one pack cigarettes per day. - Family history:: not pertinent. ROS: 23:33 Constitutional: Negative for fever, chills, and weight loss, Eyes: Negative for injury, maria luisa pain, redness, and discharge, Neck: Negative for injury, pain, and swelling, Cardiovascular: Negative for chest pain, palpitations, and edema, Abdomen/GI: Negative for abdominal pain, nausea, vomiting, diarrhea, and constipation, Back: Negative for injury and pain, : Negative for injury, bleeding, discharge, and swelling, MS/Extremity: Negative for injury and deformity, Skin: Negative for injury, rash, and discoloration, Neuro: Negative for headache, weakness, numbness, tingling, and seizure, Psych: Negative for depression, anxiety, suicide ideation, homicidal ideation, and hallucinations, Allergy/Immunology: Negative for hives, rash, and allergies, Endocrine: Negative for neck swelling, polydipsia, polyuria, polyphagia, and marked weight changes, Hematologic/Lymphatic: Negative for swollen nodes, abnormal bleeding, and unusual bruising. 23:33 ENT: Positive for sinus congestion, sinus pain, sore throat. 23:33 Respiratory: Positive for cough, with no reported sputum. Exam: 23:33 Constitutional: This is a well developed, well nourished patient who is awake, alert, maria luisa and in no acute distress. Head/Face: Normocephalic, atraumatic. Eyes: Pupils equal round and reactive to light, extra-ocular motions intact. Lids and lashes normal. Conjunctiva and sclera are non-icteric and not injected. Cornea within normal limits. Periorbital areas with no swelling, redness, or edema. Neck: Trachea midline, no thyromegaly or masses palpated, and no cervical lymphadenopathy. Supple, full range of motion without nuchal rigidity, or vertebral point tenderness. No Meningismus. Chest/axilla: Normal chest wall appearance and motion. Nontender with no deformity. No lesions are appreciated. Cardiovascular: Regular rate and rhythm with a normal S1 and S2. No gallops, murmurs, or rubs. Normal PMI, no JVD. No pulse deficits. Respiratory: Lungs have equal breath sounds bilaterally, clear to auscultation and percussion. No rales, rhonchi or wheezes noted. No increased work of breathing, no retractions or nasal flaring. Abdomen/GI: Soft, non-tender, with normal bowel sounds. No distension or tympany. No guarding or rebound. No evidence of tenderness throughout. Back: No spinal tenderness. No costovertebral tenderness. Full range of motion. Pelvic Exam: Normal external genitalia. Speculum exam with closed cervical os, no discharge or bleeding noted. Bimanual exam with normal adnexa, no adnexal or cervical motion tenderness. Normal uterus. Skin: Warm, dry with normal turgor. Normal color with no rashes, no lesions, and no evidence of cellulitis. MS/ Extremity: Pulses equal, no cyanosis. Neurovascular intact. Full, normal range of motion. Neuro: Awake and alert, GCS 15, oriented to person, place, time, and situation. Cranial nerves II-XII grossly intact. Motor strength 5/5 in all extremities. Sensory grossly intact. Cerebellar exam normal. Normal gait. Psych: Awake, alert, with orientation to person, place and time. Behavior, mood, and affect are within normal limits. 23:33 ENT: Posterior pharynx: Airway: normal, no evidence of obstruction, Tonsils: bilaterally enlarged, with erythema, Uvula: normal, midline, non-edematous, no erythema, swelling, that is mild, erythema, that is mild, exudate, is not appreciated, peritonsillar mass, is not appreciated, pooling of secretions, is not appreciated. Vital Signs: 20:12 BP 122 / 78; Pulse 98; Resp 17; Temp 98.3; Pulse Ox 100% ; Weight 122.47 kg; Height 5 ll1 ft. 6 in. (167.64 cm); Pain 8/10; 22:02 BP 116 / 49; Pulse 90; Resp 18; Pulse Ox 100% ; vg1 22:58 BP 105 / 67; Pulse 90; Resp 20; Pulse Ox 100% on R/A; vg1 23:30 BP 111 / 66; Pulse 85; Resp 18; Pulse Ox 100% on R/A; vg1 20:12 Body Mass Index 43.58 (122.47 kg, 167.64 cm) ll1 MDM: 21:27 Patient medically screened. maria luisa 23:36 Differential diagnosis: Anxiety Reaction asthma, Bronchitis pneumonia. Antibiotic maria luisa administration: The patient is discharged and will get outpatient antibiotics, Zithromax. The patient's Wells Deep Vein Thrombosis Score was calculated as follows: Total Score: 0-2 Pts- Low Risk. The patient's pulmonary embolism risk score was calculated as follows: Total Score: 0-2 points. This patient was found to be at low risk for a pulmonary embolism by using the Well's assessment criteria. Immunization status:. Data reviewed: vital signs, nurses notes, lab test result(s), radiologic studies, plain films. 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 Test interpretation: by ED physician or midlevel provider: plain radiologic studies. 05/26 21:29 Order name: Strep [facility] 05/26 21:29 Order name: Flu [facility] 05/26 21:30 Order name: Group A Streptococcus Rapid Sc; Complete Time: 23:22 EDMS 05/26 21:29 Order name: Chest Pa And Lat (2 Views) XRAY [facility] 05/26 23:33 Order name: Neck Soft Tissue XRAY [facility] 05/26 23:46 Order name: COVID-19/FLU A+B; Complete Time: 00:10 EDMS Administered Medications: 23:51 Drug: predniSONE 60 mg Route: PO; [facility] 05/27 00:10 Follow up: Response: No adverse reaction 05/26 23:52 Drug: Rocephin (cefTRIAXone) 1 grams Route: IM; Site: right gluteus; [facility] 05/27 00:15 Follow up: Response: No adverse reaction 05/26 23:52 Drug: Zithromax 500 mg Route: PO; 1 05/27 00:10 Follow up: Response: No adverse reaction Disposition: 05/27/20 00:11 Discharged to Home. Impression: Streptococcal pharyngitis, Tobacco abuse counseling, Tobacco use, Cough. - Condition is Stable. - Discharge Instructions: Steps to Quit Smoking, Smoking Hazards, Sore Throat, Strep Throat, Upper Respiratory Infection, Adult, Cool Mist Vaporizer, Strep Throat, [id number], Upper Respiratory Infection, Adult, [id number]-[id number], Cough, Adult, [id number], Cough, Adult. - Prescriptions for Medrol (Atilio) 4 mg Oral Tablets, Dose Pack - take 1 tablet by ORAL route as directed - follow package instructions; 1 packet. Zithromax 500 mg Oral Tablet - take 1 tablet by ORAL route once daily for 5 days; 5 tablet. - Work release form, Medication Reconciliation Form, Thank You Letter, Antibiotic Education, Prescription Opioid Use form. - Follow up: Private Physician; When: 2 - 3 days; Reason: Recheck today's complaints, Continuance of care, Re-evaluation by your physician. Follow up: Lynn Flanagan; When: 2 - 3 days; Reason: Recheck today's complaints, Continuance of care, Re-evaluation by your physician. - Problem is new. - Symptoms have improved. Signatures: Dispatcher [employer] EDCT Avel Santoyo RN RN sg Anderson, Corey, MD MD cha Garcia, Victoria RN RN vg1 Sera Elizabeth RN RN ll1 Corrections: (The following items were deleted from the chart) 05/26 22:48 21:30 Influenza Screen (A ordered. EDCT EDCT 22:48 22:09 CORONAVIRUS ordered. EDCT EDCT 05/27 00:20 00:11 05/27/2020 00:11 Discharged to Home. Impression: Streptococcal pharyngitis; sg Tobacco abuse counseling; Tobacco use; Cough. Condition is Stable. Discharge Instructions: Steps to Quit Smoking, Smoking Hazards, Sore Throat, Strep Throat, Upper Respiratory Infection, Adult, Cool Mist Vaporizer, Strep Throat, [id number]-[id number], Upper Respiratory Infection, Adult, Luex-mu-Bela, Cough, Adult, [id number], Cough, Adult. Prescriptions for Medrol (Atilio) 4 mg Oral Tablets, Dose Pack - take 1 tablet by ORAL route as directed - follow package instructions; 1 packet, Zithromax 500 mg Oral Tablet - take 1 tablet by ORAL route once daily for 5 days; 5 tablet. and Forms are Medication Reconciliation Form, Thank You Letter, Antibiotic Education, Prescription Opioid Use. Follow up: Private Physician; When: 2 - 3 days; Reason: Recheck today's complaints, Continuance of care, Re-evaluation by your physician. Follow up: Lynn Flanagan; When: 2 - 3 days; Reason: Recheck today's complaints, Continuance of care, Re-evaluation by your physician. Problem is new. Symptoms have improved. maria luisa
[2020-05-27 00:36] VITALS: TEMP 98.3; O2SAT 100
[2020-05-27 00:40] VITALS: BP 111/66
--- NOTE | 2020-05-27 07:18 | RAD REPORT ---
EXAM DESCRIPTION: RAD - Chest Pa And Lat (2 Views) - 05/26/2020 9:47 pm CLINICAL HISTORY: COUGH, shortness of breath COMPARISON: Single-view chest March 2020 TECHNIQUE: Frontal and lateral views of the chest were obtained. FINDINGS: The lungs are clear. Heart size is normal and central vasculature is within normal limit s. No pleural effusion or pneumothorax seen. No acute bony finding noted. No aortic abnormality. IMPRESSION: No acute cardiopulmonary process. No significant change from comparison study.
--- NOTE | 2020-05-27 08:20 | RAD REPORT ---
EXAM DESCRIPTION: RAD - Neck Soft Tissue - 05/27/2020 12:00 am CLINICAL HISTORY: Pain;Sore throat COMPARISON: None. TECHNIQUE: AP and lateral neck soft tissue images obtained. FINDINGS: No prevertebral soft tissue thickening. No foreign body or abnormal air density. Epiglotti s is normal. Tonsillar and adenoid tissue within normal limits as well. No disk or bony abnormality . IMPRESSION: Two view soft tissue neck exam negative for acute or significant finding.
== END 2020-05-27 00:20 | disposition home or self-care (01) ==
LOC: ER 19:58
DX: J02.0 Streptococcal pharyngitis (principal); Z20.822 Contact with and (suspected) exposure to COVID-19; Z71.6 Tobacco abuse counseling; Z72.0 Tobacco use
CPT/HCPCS: 0240U; 70360; 71046; 87081; 96372; 99284; J2001; J7512

== ENCOUNTER 2020-06-02 11:15 | Emergency (ER) | payer SELFPAY ==
[2020-06-02 11:57] LABS: Absolute Lymphocytes (CBC) 4.3 K/uL (0.7-4.9); Basophils % 0.8 % (0-1.3); Hematocrit 39.7 % (36.0-45.0); Lymphocytes % 30.3 % (15.3-44.8); MPV 6.8 fL (7.6-11.3); RBC Red Blood Cell Count 4.66 M/uL (3.86-4.86)
[2020-06-02 11:58] LABS: Protime INR 0.9
[2020-06-02] MEDS ORDERED: ASPIRIN 81 MG CHEWABLE TABLET ONE (12:06)
[2020-06-02] MEDS ORDERED: LORazepam 2 MG/ML VIAL ONE (12:06)
[2020-06-02] MEDS ORDERED: ONDANSETRON 4 MG/2 ML VIAL ONE (12:07)
[2020-06-02 12:14] LABS: ALT/SGPT 19 U/L (12-78); AST/SGOT 13 U/L (15-37); Albumin 4.1 g/dL (3.4-5.0); Alkaline Phosphatase 80 U/L (45-117); BUN Blood Urea Nitrogen 19 mg/dL (7-18); Bicarbonate 26 mmol/L (21-32); Bilirubin Direct < 0.1 mg/dL (0-0.2); Bilirubin Total 0.2 mg/dL (0.2-1.0); Glucose Level 91 mg/dL (74-106); Magnesium 2.3 mg/dL (1.8-2.4); NT PRO-BNP 17 pg/mL (<125); Potassium 4.2 mmol/L (3.5-5.1); Sodium Level 140 mmol/L (136-145); Troponin (Emerg Dept Use Only) < 0.02 ng/mL (0.0-0.045)
--- NOTE | 2020-06-02 12:30 | RAD REPORT ---
EXAM DESCRIPTION: RAD - Chest Single View - 06/02/2020 12:15 pm CLINICAL HISTORY: CHEST PAIN Chest pain. COMPARISON: Chest Pa And Lat (2 Views) dated 05/26/2020; Chest Single View dated 04/08/2020; Chest Pa And Lat (2 Views) dated 07/08/2018; CHEST SINGLE VIEW dated 10/13/2014 FINDINGS: Portable technique limits examination quality. The lungs are grossly clear. The heart is normal in size. No displaced fractures. IMPRESSION: No acute intrathoracic process suspected.
--- NOTE | 2020-06-02 16:09 | ER ---
Nurse's Notes [facility] Name: Christopher Osuna Age: 34 yrs Sex: Female : 1985 Arrival Date: 06/02/2020 Time: 11:16 Bed 19 Private MD: Diagnosis: Chest pain, unspecified Presentation: 06/02 11:19 Chief complaint: Patient states: two days before this had numbness to right side of iw face , this morning her back started cramping and then her stomach felt like indigestion and then her left arm was tingling and going numb, started from shoulder down feels like tightness. Coronavirus screen: At this time, the client does not indicate any symptoms associated with coronavirus-19. Ebola Screen: Patient negative for fever greater than or equal to 101.5 degrees Fahrenheit, and additional compatible Ebola Virus Disease symptoms Patient denies exposure to infectious person. Patient denies travel to an Ebola-affected area in the 21 days before illness onset. No symptoms or risks identified at this time. Initial Sepsis Screen: Does the patient meet any 2 criteria? No. Patient's initial sepsis screen is negative. Does the patient have a suspected source of infection? No. Patient's initial sepsis screen is negative. Risk Assessment: Do you want to hurt yourself or someone else? Patient reports no desire to harm self or others. Onset of symptoms was May 30, 2020. 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 - Social history:: Smoking status: Patient reports the use of cigarette tobacco products, smokes one pack cigarettes per day. Screenin:25 Abuse screen: Denies threats or abuse. Nutritional screening: No deficits noted. rb3 Tuberculosis screening: No symptoms or risk factors identified. Fall Risk None identified. Assessment: 11:25 General: Appears uncomfortable, Behavior is anxious. Pain: Complains of pain in chest rb3 Pain radiates to left arm Pain currently is 9 out of 10 on a pain scale. Pain began yesterday. Neuro: Level of Consciousness is awake, alert, obeys commands, Oriented to person, place, time, situation, Reports numbness in right arm and right side of face. Cardiovascular: Patient's skin is warm and dry. Rhythm is sinus rhythm. Respiratory: Airway is patent Respiratory effort is even, unlabored, Respiratory pattern is regular, symmetrical. GI: Reports nausea. : No signs and/or symptoms were reported regarding the genitourinary system. 12:22 Reassessment: Patient appears in no apparent distress at this time. Patient and/or rb3 family updated on plan of care and expected duration. Pain level reassessed. Patient is alert, oriented x 3, equal unlabored respirations, skin warm/dry/pink. 13:23 Reassessment: Patient appears in no apparent distress at this time. pt. reports feeling rb3 more relaxed. 14:23 Reassessment: Patient appears in no apparent distress at this time. Patient and/or rb3 family updated on plan of care and expected duration. Pain level reassessed. Patient is alert, oriented x 3, equal unlabored respirations, skin warm/dry/pink. 15:20 Reassessment: Patient appears in no apparent distress at this time. No changes from rb3 previously documented assessment. Pt. is watching TV. 16:17 Reassessment: Patient appears in no apparent distress at this time. Patient and/or rb3 family updated on plan of care and expected duration. Pain level reassessed. Patient is alert, oriented x 3, equal unlabored respirations, skin warm/dry/pink. Vital Signs: 11:19 BP 153 / 93; Pulse 103; Resp 18 S; Temp 97.9; Pulse Ox 99% on R/A; Weight 122.47 kg; iw Height 5 ft. 6 in. (167.64 cm); Pain 8/10; 12:30 BP 106 / 72; Pulse 86; Resp 17; Pulse Ox 96% ; rb3 13:22 BP 108 / 69; Pulse 81; Resp 17; Pulse Ox 95% ; rb3 14:24 BP 112 / 61; Pulse 79; Resp 15; Pulse Ox 96% on R/A; rb3 15:20 BP 107 / 75; Pulse 86; Resp 18; Pulse Ox 95% ; rb3 16:20 BP 115 / 89; Pulse 88; Resp 16; Pulse Ox 96% ; rb3 11:19 Body Mass Index 43.58 (122.47 kg, 167.64 cm) iw ED Course: 11:16 Patient arrived in ED. ag5 11:21 Triage completed. iw 11:22 Arm band placed on. iw 11:23 Elizabeth Chairez RN is Primary Nurse. rb3 11:25 Antoine Hughes MD is Attending Physician. kdr 11:25 Patient has correct armband on for positive identification. Bed in low position. Call rb3 light in reach. Side rails up X 1. monitoring tech on. Pulse ox on. NIBP on. Warm blanket given. 11:25 Missed attempt(s): 20 gauge in right antecubital area. Labs were collected but the IV rb3 would not advance. Bleeding controlled, band aid applied, catheter tip intact. Patient maintains SpO2 saturation greater than 95% on room air. 12:08 Missed attempt(s): 22 gauge in left forearm. Attempted by MARIAM CRAFT. rb3 12:10 Inserted saline lock: 22 gauge in left wrist, using aseptic technique. ,using aseptic rb3 technique. IV inserted by VENANCIO, glaze wiper. 12:15 XRAY Chest (1 view) In Process Unspecified. EDMS 16:23 No provider procedures requiring assistance completed. IV discontinued, intact, rb3 bleeding controlled, No redness/swelling at site. Pressure dressing applied. Administered Medications: 11:47 Drug: Aspirin Chewable Tablet 324 mg Route: PO; rb3 12:30 Follow up: Response: No adverse reaction rb3 12:12 Drug: Zofran (Ondansetron) 4 mg Route: IVP; Site: left wrist; rb3 12:30 Follow up: Response: No adverse reaction rb3 12:12 Drug: Ativan 1 mg Route: IVP; Site: left wrist; rb3 12:30 Follow up: Response: No adverse reaction rb3 Outcome: 16:08 Discharge ordered by . kdr 16:23 Discharged to home ambulatory. rb3 16:23 Condition: stable 16:23 Discharge instructions given to patient, Instructed on discharge instructions, follow up and referral plans. Demonstrated understanding of instructions, follow-up care, Prescriptions given X none 16:25 Patient left the ED. rb3 Signatures: Dispatcher [employer] EDMS Antoine Hughes MD MD kdr Lluvia Sandoval, MARIAM RN iw Elvis Otero ag5 Elizabeth Chairez, MARIAM RN rb3 Corrections: (The following items were deleted from the chart) 16:40 16:35 Patient left the ED. rb3 rb3
--- NOTE | 2020-06-02 16:09 | EDPHYS ---
Physician Documentation [facility] Name: Christopher Osuna Age: 34 yrs Sex: Female : 1985 Arrival Date: 06/02/2020 Time: 11:16 Bed 19 Private MD: ED Physician Antoine Hughes HPI: 06/02 11:44 This 34 yrs old Female presents to ER via Ambulatory with complaints of Chest kdr Pain, Chest Tightness, Numbness. 11:44 The patient or guardian reports chest pain that is located primarily in the anterior kdr chest wall, left. The pain radiates to the left arm, the left shoulder, The chest pain is described as aching, dull, a heaviness. Duration: The patient or guardian reports multiple episodes, that are intermittent, that wax and wane, with no pattern. The patient has not experienced similar symptoms in the past. The patient has not recently seen a physician. 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 - Social history:: Smoking status: Patient reports the use of cigarette tobacco products, smokes one pack cigarettes per day. ROS: 11:40 Constitutional: Negative for fever, chills, and weight loss, Eyes: Negative for injury, kdr pain, redness, and discharge, Neck: Negative for injury, pain, and swelling, Abdomen/GI: Negative for abdominal pain, nausea, vomiting, diarrhea, and constipation, Back: Negative for injury and pain, MS/Extremity: Negative for injury and deformity, Skin: Negative for injury, rash, and discoloration, Neuro: Negative for headache, weakness, numbness, tingling, and seizure activity. Psych: Negative for depression, anxiety, suicide ideation, homicidal ideation, and hallucinations, Allergy/Immunology: Negative for hives, rash, and allergies, Endocrine: Negative for neck swelling, polydipsia, polyuria, polyphagia, and marked weight changes, Hematologic/Lymphatic: Negative for swollen nodes, abnormal bleeding, and unusual bruising. 11:40 Cardiovascular: Positive for chest pain, Negative for edema, orthopnea, palpitations, paroxysmal nocturnal dyspnea. 11:40 Abdomen/GI: Positive for nausea, Negative for vomiting, diarrhea, constipation, abdominal cramps, abdominal distension. Exam: 11:40 Constitutional: This is a well developed, well nourished patient who is awake, alert, kdr and in mild distress. Head/Face: Normocephalic, atraumatic. Eyes: Pupils equal round and reactive to light, extra-ocular motions intact. Lids and lashes normal. Conjunctiva and sclera are non-icteric and not injected. Cornea within normal limits. Periorbital areas with no swelling, redness, or edema. Neck: Trachea midline, no thyromegaly or masses palpated, and no cervical lymphadenopathy. Supple, full range of motion without nuchal rigidity, or vertebral point tenderness. No Meningismus. Chest/axilla: Normal chest wall appearance and motion. Nontender with no deformity. No lesions are appreciated. Respiratory: Lungs have equal breath sounds bilaterally, clear to auscultation and percussion. No rales, rhonchi or wheezes noted. No increased work of breathing, no retractions or nasal flaring. Back: No spinal tenderness. No costovertebral tenderness. Full range of motion. Skin: Warm, dry with normal turgor. Normal color with no rashes, no lesions, and no evidence of cellulitis. MS/ Extremity: Pulses equal, no cyanosis. Neurovascular intact. Full, normal range of motion. Neuro: Awake and alert, GCS 15, oriented to person, place, time, and situation. Cranial nerves II-XII grossly intact. Motor strength 5/5 in all extremities. Sensory grossly intact. Cerebellar exam normal. Normal gait. Psych: Awake, alert, with orientation to person, place and time. Behavior, mood, and affect are within normal limits. 11:40 Cardiovascular: Regular rate and rhythm with a normal S1 and S2. No gallops, murmurs, or rubs. Normal PMI, no JVD. No pulse deficits. Abdomen/GI: Soft, non-tender, with normal bowel sounds. No distension or tympany. No guarding or rebound. No evidence of tenderness throughout. 11:40 Cardiovascular: Rate: normal, Rhythm: 11:40 ECG was reviewed by the Attending Physician. Vital Signs: 11:19 BP 153 / 93; Pulse 103; Resp 18 S; Temp 97.9; Pulse Ox 99% on R/A; Weight 122.47 kg; iw Height 5 ft. 6 in. (167.64 cm); Pain 8/10; 12:30 BP 106 / 72; Pulse 86; Resp 17; Pulse Ox 96% ; rb3 13:22 BP 108 / 69; Pulse 81; Resp 17; Pulse Ox 95% ; rb3 14:24 BP 112 / 61; Pulse 79; Resp 15; Pulse Ox 96% on R/A; rb3 15:20 BP 107 / 75; Pulse 86; Resp 18; Pulse Ox 95% ; rb3 16:20 BP 115 / 89; Pulse 88; Resp 16; Pulse Ox 96% ; rb3 11:19 Body Mass Index 43.58 (122.47 kg, 167.64 cm) iw MDM: 11:44 Data reviewed: vital signs, nurses notes, lab test result(s), radiologic studies. kdr Counseling: I had a detailed discussion with the patient and/or guardian regarding: the historical points, exam findings, and any diagnostic results supporting the discharge/admit diagnosis, lab results, radiology results. 16:08 Patient medically screened. kdr 16:15 Differential diagnosis: acute myocardial infarction, acute pericarditis, anxiety, kdr esophagitis. Special discussion: Based on the patient's history, exam, and Dx evaluation, there is no indication for emergent intervention or inpatient Tx. It is understood by the patient/guardian that if the Sx's persist or worsen they need to return immediately for re-evaluation. ED course: The patient improved with the interventions given and was happy with the care provided and the plan for discharge and follow-up. 06/02 11:26 Order name: Basic Metabolic Panel [facility] 06/02 11: Order name: CBC with Diff; Complete Time: 14:33 [facility] 06/02 11:26 Order name: LFT's [facility] 06/02 11:26 Order name: Magnesium kdr 06/02 11: Order name: NT PRO-BNP [facility] 06/02 11: Order name: PT-INR; Complete Time: 14:33 [facility] 06/02 11:26 Order name: Troponin (emerg Dept Use Only); Complete Time: 14:33 [facility] 06/02 11: Order name: XRAY Chest (1 view); Complete Time: 14:33 [facility] 06/02 11:27 Order name: Basic Metabolic Panel; Complete Time: 14:33 EDMS 06/02 11:27 Order name: Liver (Hepatic) Function; Complete Time: 14:33 EDMS 06/02 11:27 Order name: Magnesium; Complete Time: 14:33 EDMS 06/02 11:27 Order name: NT PRO-BNP; Complete Time: 14:33 EDMS 06/02 11:40 Order name: Troponin (emerg Dept Use Only): draw two hours after initial draw; Complete kdr Time: 13:40 06/02 15:06 Order name: Troponin (emerg Dept Use Only); Complete Time: 16:07 rb3 06/02 11:26 Order name: EKG; Complete Time: 11:27 kdr 06/02 11:26 Order name: Cardiac monitoring; Complete Time: 1157 kdr 06/02 11:26 Order name: EKG - Nurse/Tech; Complete Time: 1157 kdr 06/02 11:26 Order name: IV Saline Lock; Complete Time: 57 kdr 06/02 11:26 Order name: Labs collected and sent; Complete Time: 57 kdr 06/02 11:26 Order name: O2 Per Protocol; Complete Time: 57 kdr 06/02 11:26 Order name: O2 Sat Monitoring; Complete Time: :57 kdr EC:40 Rate is 92 beats/min. Rhythm is regular, Normal Sinus Rhythm with No ectopy. QRS [place] kdr is Normal. [place] interval is normal. QRS interval is normal. QT interval is normal. Clinical impression: NSR w/ Non-specific ST/T Changes. Administered Medications: 11:47 Drug: Aspirin Chewable Tablet 324 mg Route: PO; rb3 12:30 Follow up: Response: No adverse reaction rb3 12:12 Drug: Zofran (Ondansetron) 4 mg Route: IVP; Site: left wrist; rb3 12:30 Follow up: Response: No adverse reaction rb3 12:12 Drug: Ativan 1 mg Route: IVP; Site: left wrist; rb3 12:30 Follow up: Response: No adverse reaction rb3 Disposition: 06/02/20 16:08 Discharged to Home. Impression: Chest pain, unspecified. - Condition is Stable. - Discharge Instructions: Nonspecific Chest Pain, [id number]. - Medication Reconciliation Form, Thank You Letter form. - Follow up: Private Physician; When: 2 - 3 days; Reason: If symptoms return, Further diagnostic work-up, Recheck today's complaints, Continuance of care, Re-evaluation by your physician. - Problem is new. - Symptoms have improved. Signatures: Dispatcher [employer] EDMS Antoine Hughes MD MD kdr Lluvia Sandoval RN RN iw Elizabeth Chairez RN RN rb3 Corrections: (The following items were deleted from the chart) 16:35 16:08 06/02/2020 16:08 Discharged to Home. Impression: Chest pain, unspecified. rb3 Condition is Stable. Forms are Medication Reconciliation Form, Thank You Letter, Antibiotic Education, Prescription Opioid Use. Follow up: Private Physician; When: 2 - 3 days; Reason: If symptoms return, Further diagnostic work-up, Recheck today's complaints, Continuance of care, Re-evaluation by your physician. Problem is new. Symptoms have improved. kdr
[2020-06-02 16:40] VITALS: TEMP 97.9
[2020-06-02 16:46] VITALS: BP 115/89; O2SAT 96
--- NOTE | 2020-06-05 08:00 | EKG ---
Test Date: 2020-06-02 Test Time: 11:34:34 Sr. Logistics Analyst: VENANCIO MEASUREMENT RESULTS: Intervals: Rate: 92 CT: 112 QRSD: 76 QT: 348 QTc: 430 [place]: P: 55 CT: 112 QRS: 57 T: 50 INTERPRETIVE STATEMENTS: Normal sinus rhythm Cannot rule out Anterior infarct, age undetermined Abnormal ECG Compared to ECG 07/08/2018 10:06:20 Myocardial infarct finding now present Electronically Signed On 06-05-20 07:54:07 ANGLE FURNACEMAN by Alex Alvarez
== END 2020-06-02 16:35 | disposition home or self-care (01) ==
LOC: ER 11:15
DX: R07.9 Chest pain, unspecified (principal); F17.210 Nicotine dependence, cigarettes, uncomplicated
CPT/HCPCS: 36415; 71045; 80048; 80076; 83735; 83880; 84484; 85025; 85610; 93005; 96374; 96375; 99285; J2405

== ENCOUNTER 2021-10-24 18:47 | Emergency (ER) | payer SELFPAY ==
[2021-10-24 20:19] LABS: Absolute Lymphocytes (CBC) 0.3 K/uL (0.7-4.9); Hematocrit 38.3 % (36.0-45.0); Lymphocytes % 4.1 % (15.3-44.8); MCV 87.8 fL (80-100); MPV 6.4 fL (7.6-11.3); RBC Red Blood Cell Count 4.36 M/uL (3.86-4.86)
[2021-10-24 20:27] LABS: Albumin 3.7 g/dL (3.4-5.0); Bilirubin Total 0.1 mg/dL (0.2-1.0); Potassium 3.7 mmol/L (3.5-5.1); Protein, Total 7.3 g/dL (6.4-8.2)
[2021-10-24] MEDS ORDERED: KETOROLAC 30 MG/ML INJ ONE (20:35)
[2021-10-24] MEDS ORDERED: ONDANSETRON 4 MG/2 ML VIAL ONE ×2 (20:35→23:14)
--- NOTE | 2021-10-24 20:55 | RAD REPORT ---
EXAM DESCRIPTION: CT - Abdomen Pelvis Wo Contrast - 10/24/2021 8:41 pm CLINICAL HISTORY: Abdominal pain. flank pain COMPARISON: Chest Single View dated 04/08/2020 TECHNIQUE: CT imaging of the abdomen and pelvis was performed without contrast. Solid organ, bowel a nd vascular assessment is limited due to lack of IV and oral contrast. All CT scans are performed using dose optimization technique as appropriate and may include automated exposure control or mA/KV adjustment according to patient size. FINDINGS: The lower lung pena are clear. Cholecystectomy clips. The liver, spleen, pancreas, adrenal glands and kidneys are within normal limits for a limited non-co ntrast examination.Punctate nonobstructive right renal calculus. No bowel obstruction, free air, free fluid or abscess. The appendix is normal. The osseous structures are within normal limits. IMPRESSION: No acute intra-abdominal or pelvic findings. A limited non-contrast examination was performed as detailed.
[2021-10-24 21:46] LABS: Urine Blood 2+ (Negative); Urine Glucose Negative (Negative); Urine Protein Negative (Negative); Urine Specific Gravity 1.025 (1.005-1.030)
--- NOTE | 2021-10-24 21:56 | ER ---
Nurse's Notes [facility] Name: Christopher Osuna Age: 36 yrs Sex: Female : 1985 Arrival Date: 10/24/2021 Time: 18:53 Bed 19 Private MD: Diagnosis: UTI/ Urinary tract infection, site not specified Presentation: 10/24 18:53 Chief complaint: Patient states: pt reports lower back pain, lower abdominal pain and hunter fever. Coronavirus screen: Vaccine status: Patient reports being unvaccinated. Ebola Screen: Patient denies travel to an Ebola-affected area in the 21 days before illness onset. Initial Sepsis Screen: Does the patient meet any 2 criteria? HR > 90 bpm. Does the patient have a suspected source of infection? No. Patient's initial sepsis screen is negative. Risk Assessment: Do you want to hurt yourself or someone else? Patient reports no desire to harm self or others. Onset of symptoms was October 24, 2021. 18:53 Method Of Arrival: EMS: [facility] hunter 18:53 Acuity: VASHTI 3 hunter Triage Assessment: 18:54 General: Appears in no apparent distress. Behavior is calm, cooperative. Pain: hunter Complains of pain in back and abdomen. GI: Reports Pain is 9 out of 10 on a pain scale. 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 - Social history:: Smoking status: Patient reports the use of cigarette tobacco products, smokes one pack cigarettes per day. Patient uses street drugs. Screenin:56 Abuse screen: Denies threats or abuse. Denies injuries from another. Nutritional hunter screening: No deficits noted. Tuberculosis screening: No symptoms or risk factors identified. Fall Risk None identified. Assessment: 20:34 Reassessment: No changes from previously documented assessment. Patient and/or family ll3 updated on plan of care and expected duration. Pain level reassessed. Patient is alert, oriented x 3, equal unlabored respirations, skin warm/dry/pink. 22:00 Reassessment: No changes from previously documented assessment. Patient and/or family ll3 updated on plan of care and expected duration. Pain level reassessed. Patient is alert, oriented x 3, equal unlabored respirations, skin warm/dry/pink. 23:11 Reassessment: No changes from previously documented assessment. Patient and/or family ll3 updated on plan of care and expected duration. Pain level reassessed. Patient is alert, oriented x 3, equal unlabored respirations, skin warm/dry/pink. Vital Signs: 18:53 BP 110 / 77; Pulse 100; Resp 19; Temp 98.9(O); Pulse Ox 100% ; Weight 90.72 kg; Height hunter 5 ft. 6 in. (167.64 cm); 20:34 BP 104 / 64; Pulse 98; Resp 19; Pulse Ox 100% on R/A; ll3 22:00 BP 110 / 79; Pulse 92; Resp 17; Pulse Ox 100% on R/A; ll3 23:11 BP 116 / 76; Pulse 88; Resp 18; Pulse Ox 99% on R/A; ll3 18:53 Body Mass Index 32.28 (90.72 kg, 167.64 cm) hunter ED Course: 18:53 Patient arrived in ED. hunter 18:54 Triage completed. hunter 18:54 Arm band placed on. hunter 18:55 Tani Arauz is PHCP. jl9 18:55 Tommy Childress DO is Attending Physician. jl9 18:56 Patient has correct armband on for positive identification. Bed in low position. hunter 18:56 No provider procedures requiring assistance completed. hunter 20:01 Inserted saline lock: 22 gauge in left antecubital area, using aseptic technique. Blood vc1 collected. 20:34 Nicole Gilmore, RN is Primary Nurse. ll3 20:43 CT Abd/Pelvis - Without Contrast In Process Unspecified. EDMS 23:41 IV discontinued, intact, bleeding controlled, No redness/swelling at site. Pressure ll3 dressing applied. Administered Medications: 20:30 Drug: Ondansetron 4 mg Route: IVP; Site: left antecubital; ll3 23:42 Follow up: Response: No adverse reaction ll3 20:34 Drug: Ketorolac 30 mg Route: IVP; Site: left antecubital; ll3 23:42 Follow up: Response: No adverse reaction ll3 22:25 Drug: Rocephin (cefTRIAXone) 1 grams Route: IV; Rate: bolus; Site: left forearm; ll3 22:25 Drug: NS 0.9% 1000 ml Route: IV; Rate: 125 ml/hr; Site: left forearm; ll3 23:42 Follow up: Response: No adverse reaction; IV Status: Completed infusion; IV Intake: ll3 1000ml 23:10 Drug: Ondansetron 4 mg Route: IVP; Site: left forearm; ll3 23:42 Follow up: Response: No adverse reaction ll3 23:11 Drug: morphine 4 mg Route: IVP; Infused Over: 4 mins; Site: left forearm; ll3 23:42 Follow up: Response: No adverse reaction ll3 Medication: 18:57 VIS not applicable for this client. hunter Intake: 23:42 IV: 1000ml; Total: 1000ml. ll3 Outcome: 21:55 Discharge ordered by . tom 22:02 Discharge ordered by . tom 23:41 Discharged to home ambulatory. ll3 23:41 Condition: stable 23:41 Discharge instructions given to patient, family, Instructed on discharge instructions, follow up and referral plans. medication usage, Demonstrated understanding of instructions, follow-up care, medications, Prescriptions given X 1. 23:43 Patient left the ED. ll3 Signatures: Dispatcher [employer] EDNicole Ashford RN RN ll3 Leola-StageNayely martin RN RN ha Calcote, Vanessa, RN RN vc1 Linares, John jl9
--- NOTE | 2021-10-24 21:56 | EDPHYS ---
Physician Documentation [facility] Name: Christopher Osuna Age: 36 yrs Sex: Female : 1985 Arrival Date: 10/24/2021 Time: 18:53 Bed 19 Private MD: ED Physician Tommy Childress HPI: 10/24 19:18 This 36 yrs old Female presents to ER via EMS with complaints of Flank pain. jl9 19:18 This 36 yrs old Female presents to ER via EMS with complaints of Dysuria/ Abdominal jl9 pain. 19:18 . Onset: The symptoms/episode began/occurred 7 day(s) ago. Severity of symptoms: Pain jl9 is currently a . 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 - Social history:: Smoking status: Patient reports the use of cigarette tobacco products, smokes one pack cigarettes per day. Patient uses street drugs. ROS: 19:19 Constitutional: Negative for fever, chills, and weight loss, Eyes: Negative for injury, jl9 pain, redness, and discharge, ENT: Negative for injury, pain, and discharge, Neck: Negative for injury, pain, and swelling, Cardiovascular: Negative for chest pain, palpitations, and edema, Respiratory: Negative for shortness of breath, cough, wheezing, and pleuritic chest pain, MS/Extremity: Negative for injury and deformity, Skin: Negative for injury, rash, and discoloration, Neuro: Negative for headache, weakness, numbness, tingling, and seizure, Allergy/Immunology: Negative for hives, rash, and allergies, Endocrine: Negative for neck swelling, polydipsia, polyuria, polyphagia, and marked weight changes, Hematologic/Lymphatic: Negative for swollen nodes, abnormal bleeding, and unusual bruising. 19:19 Abdomen/GI: Positive for nausea. 19:19 Back: Positive for flank pain, bilaterally. 19:19 : Positive for flank pain, bladder incontinence foul smelling urine. Exam: 19:20 Constitutional: This is a well developed, well nourished patient who is awake, alert, jl9 and in no acute distress. Head/Face: Normocephalic, atraumatic. Eyes: Pupils equal round and reactive to light, extra-ocular motions intact. Lids and lashes normal. Conjunctiva and sclera are non-icteric and not injected. Cornea within normal limits. Periorbital areas with no swelling, redness, or edema. ENT: Mucous membranes moist. Neck: Trachea midline, no thyromegaly or masses palpated, and no cervical lymphadenopathy. Chest/axilla: Normal chest wall appearance and motion. Nontender with no deformity. No lesions are appreciated. Cardiovascular: Regular rate and rhythm with a normal S1 and S2. No gallops, murmurs, or rubs. Normal PMI, no JVD. No pulse deficits. Respiratory: Lungs have equal breath sounds bilaterally, clear to auscultation and percussion. No rales, rhonchi or wheezes noted. No increased work of breathing, no retractions or nasal flaring. Skin: Warm, dry with normal turgor. Normal color with no rashes, no lesions, and no evidence of cellulitis. MS/ Extremity: Pulses equal, no cyanosis. Neurovascular intact. Full, normal range of motion. Neuro: Awake and alert, GCS 15, oriented to person, place, time, and situation. Cranial nerves II-XII grossly intact. Motor strength 5/5 in all extremities. Sensory grossly intact. Psych: Awake, alert, with orientation to person, place and time. Behavior, mood, and affect are within normal limits. 19:20 Abdomen/GI: Soft, non-tender, with normal bowel sounds. No distension or tympany. No guarding or rebound. No evidence of tenderness throughout. 19:20 Back: pain, that is mild. 19:20 : CVA tenderness, noted bilaterally. Vital Signs: 18:53 BP 110 / 77; Pulse 100; Resp 19; Temp 98.9(O); Pulse Ox 100% ; Weight 90.72 kg; Height hunter 5 ft. 6 in. (167.64 cm); 20:34 BP 104 / 64; Pulse 98; Resp 19; Pulse Ox 100% on R/A; ll3 22:00 BP 110 / 79; Pulse 92; Resp 17; Pulse Ox 100% on R/A; ll3 23:11 BP 116 / 76; Pulse 88; Resp 18; Pulse Ox 99% on R/A; ll3 18:53 Body Mass Index 32.28 (90.72 kg, 167.64 cm) hunter MDM: 18:55 Patient medically screened. 9 22:01 Data reviewed: vital signs, nurses notes. 10/24 18:58 Order name: CBC with Diff; Complete Time: 20:28 9 10/24 18:58 Order name: CMP; Complete Time: 20:28 [facility] 10/24 18:58 Order name: Lipase; Complete Time: 20:28 [facility] 10/24 18:58 Order name: CT Abd/Pelvis - Without Contrast; Complete Time: 20:57 [facility] 10/24 21:46 Order name: Urine Dipstick-Ancillary; Complete Time: 21:51 [facility] 10/24 18:58 Order name: IV Saline Lock; Complete Time: 20:00 [facility] 10/24 18:58 Order name: Labs collected and sent; Complete Time: 20:00 [facility] 10/24 18:58 Order name: Urine Dipstick-Ancillary (obtain specimen); Complete Time: 21:43 [facility] Administered Medications: 20:30 Drug: Ondansetron 4 mg Route: IVP; Site: left antecubital; ll3 23:42 Follow up: Response: No adverse reaction ll3 20:34 Drug: Ketorolac 30 mg Route: IVP; Site: left antecubital; ll3 23:42 Follow up: Response: No adverse reaction ll3 22:25 Drug: Rocephin (cefTRIAXone) 1 grams Route: IV; Rate: bolus; Site: left forearm; ll3 22:25 Drug: NS 0.9% 1000 ml Route: IV; Rate: 125 ml/hr; Site: left forearm; ll3 23:42 Follow up: Response: No adverse reaction; IV Status: Completed infusion; IV Intake: ll3 1000ml 23:10 Drug: Ondansetron 4 mg Route: IVP; Site: left forearm; ll3 23:42 Follow up: Response: No adverse reaction ll3 23:11 Drug: morphine 4 mg Route: IVP; Infused Over: 4 mins; Site: left forearm; ll3 23:42 Follow up: Response: No adverse reaction ll3 Disposition: 21:39 Co-signature as Attending Physician, Tommy QUINN was immediately available on-site ms3 in the Emergency Department for consultation in the care of the patient.. Disposition Summary: 10/24/21 22:02 Discharge Ordered Location: Home(10/24/21 22:02) jl9 Condition: Stable(10/24/21 22:02) jl9 Diagnosis - UTI/ Urinary tract infection, site not specified(10/24/21 22:02) jl9 Followup: jl9 - With: Private Physician - When: 1 - 2 days - Reason: Recheck today's complaints, Continuance of care, Re-evaluation by your physician Discharge Instructions: - Discharge Summary Sheet jl9 - Urinary Tract Infection, Adult, [id number] jl9 Forms: - Medication Reconciliation Form jl9 - Thank You Letter jl9 - Antibiotic Education jl9 - Prescription Opioid Use jl9 Prescriptions: - Cipro 500 mg Oral Tablet - take 1 tablet by ORAL route every 12 hours for 7 days; 14 tablet; Refills: 0, jl9 Product Selection Permitted Signatures: Dispatcher [employer] EDMS Tommy Childress DO DO ms3 Nicole Gilmore RN RN ll3 Nayely Gallardo RN RN ha Linares, John jl9 Corrections: (The following items were deleted from the chart) 21:59 21:55 Home jl9 jl9 21:59 21:55 Stable jl9 jl9 21:59 21:55 UTI/ Urinary tract infection, site not specified jl9 jl9
[2021-10-24] MEDS ORDERED: NA CHLORIDE 0.9% 1,000 ML ONE (22:27)
[2021-10-24] MEDS ORDERED: CEFTRIAXONE 1000 MG/VIAL ONE (22:27)
[2021-10-24] MEDS ORDERED: MORPHINE 4 MG/ML SYR ONE (23:14)
[2021-10-24 23:51] VITALS: TEMP 98.9
[2021-10-25 00:08] VITALS: BP 116/76; O2SAT 99
== END 2021-10-24 23:43 | disposition home or self-care (01) ==
LOC: ER 18:47
DX: N39.0 Urinary tract infection, site not specified (principal); F17.210 Nicotine dependence, cigarettes, uncomplicated
CPT/HCPCS: 36415; 74176; 80053; 81003; 83690; 85025; J2405; J7030